=== PATIENT | female | born 1990 | race African-American/Black ===

== ENCOUNTER 2020-09-04 07:19 | Day surgery (SDC) | payer OTHER ==
[2020-09-04] VITALS (9 sets, daily range): BP systolic 103–117; BP diastolic 58–78
[~2020-09-04] VITALS: Ht 162.6 cm; Wt 69.4 kg
--- NOTE | 2020-09-04 06:53 | Anethesia Preoperative Eval ---
Anesthesia Pre-op PMH/ROS General Date of Evaluation: Sep 04, 2020 Anesthesiologist: Brian ASA Score: ASA 1 Mallampati Score Class I : Soft palate, uvula, fauces, pillars visible Class II: Soft palate, uvula, fauces visible Class III: Soft palate, base of uvula visible Class IV: Only hard plate visible Mallampati Classification: Class I Surgeon: Dusty Diagnosis: 5th digit hammertoes bilateral Surgical Procedure: bilateral 5th digit hammertoe correction Anesthesia History: none Family History: no anesthesia problems Allergies: Coded Allergies: Cultivated Oat Pollen (Verified Allergy, Intermediate, watery eyes; s tuhy, 09/02/20) SULFA (SULFONAMIDE ANTIBIOTICS) (Verified Allergy, Intermediate, unknown, 09/02/20) "was told by mother" Medications: see eMAR Patient NPO?: Yes NPO Date: Sep 04, 2020 NPO Time: 00:00 Past Medical History Cardiovascular: Denies: HTN, CAD, NV, valve dz, arrhythmia, other Pulmonary: Denies: asthma, COPD, [place], other Gastrointestinal/Genitourinary: Denies: GERD, CRI, ESRD, other Neurologic/Psychiatric: Denies: dementia, CVA, depression/anxiety, TIA, other Endocrine: Denies: DM, hypothyroidism, steroids, other HEENT: Denies: cataract (L), cataract (R), glaucoma, SENECA (L), SENECA (R), other Hematology/Immune: Denies: anemia, DVT, bleeding disorder, other Musculoskeletal/Integumentary: Denies: OA, RA, DJD, DDD, edema, other PSxH Narrative: excision thyroglossal duct Anesthesia Pre-op Phys. Exam Physician Exam see chart Constitutional: NAD Cardiovascular: RRR Respiratory: CTA Airway Exam Mallampati Score: Class I MO: full ROM: full Teeth: intact Anesthesia Pre-op A/P Labs see chart Risk Assessment & Plan Assessment: ASA I Plan: MAC Status Change Before Surgery: No Pre-Antibiotics Drug: Ancef 1g Given Within 1 Hr of Incision: Yes Marita Torres MD Sep 04, 2020 06:53
[2020-09-04] MEDS ORDERED: DiphenhydrAMINE 50mg/ml Inj IVP PRN (08:00)
[2020-09-04] MEDS ORDERED: fentaNYL 100 mcg/2 mL IV PRN (08:00)
[2020-09-04] MEDS ORDERED: Ketorolac 30mg Inj IV PRN (08:00)
[2020-09-04] MEDS ORDERED: LR 1000ml 1,000 ML IVLG SCH (08:00)
[2020-09-04] MEDS ORDERED: Metoclopramide 10mg/2ml Inj IVP PRN (08:00)
[2020-09-04] MEDS ORDERED: Midazolam 2mg/2ml Inj IVP PRN (08:00)
[2020-09-04] MEDS ORDERED: Hydromorphone 0.5mg/0.5ml inj IVP PRN (08:00)
[2020-09-04] MEDS ORDERED: Labetalol 5mg/ml 20ml vial IV PRN (08:00)
[2020-09-04] MEDS ORDERED: LORazepam Inj 2mg/ml 1ml IV PRN (08:00)
[2020-09-04] MEDS ORDERED: Nail Polish Remover TOPIC ONE (08:42)
[2020-09-04] MEDS ORDERED: Betadine 10% Oint 30gm TOPIC ONE (08:42)
[2020-09-04] MEDS ORDERED: Bacitracin 50000 Units Vial ONE (08:43)
[2020-09-04] MEDS ORDERED: Bupivacaine 0.25% Inj 30ml INJ ONE (08:43)
[2020-09-04] MEDS ORDERED: Lidocaine 1% Plain 30 ml INJ ONE (08:43)
[2020-09-04] MEDS ORDERED: ceFAZolin sod 1 GM in NS 55 ML IVPB ONE (09:00)
[2020-09-04] MEDS ORDERED: LR 1000ml ONE (09:00)
[2020-09-04] MEDS ORDERED: Sterile Water Irrig 1000ml IRRIG ONE (09:00)
--- NOTE | 2020-09-04 09:11 | Pre-Procedure Note/Attestation ---
Pre-Procedure Note/Attestation Complete Prior to Procedure Planned Procedure: bilateral Procedure Narrative: correction of hammer toe bilateral 5th with arthroplasty and tendon release with possible k-wire Indications for Procedure Pre-Operative Diagnosis: painful hammer toe bilateral 5th Attestation I attest that I discussed the nature of the procedure; its benefits; risks and complications; and alternatives (and the risks and benefits of such alternatives), prior to the procedure, with the patient (or the patient's legal customer account representative). I attest that, if there was a reasonable possibility of needing a blood transfusion, the patient (or the patient's legal customer account representative) was given the [facility] standardized written summary, pursuant to the [place] Blood Safety Act ([place] Health and Safety Code # 1645, as amended). I attest that I re-evaluated the patient just prior to the surgery and that there has been no change in the patient's H&P, except as documented below: Joon Montano DPM Sep 04, 2020 09:11
[2020-09-04] MEDS ORDERED: fentaNYL 100 mcg/2 mL IV ONE (09:16)
[2020-09-04] MEDS ORDERED: Lidocaine 1% MPF 10mg/ml 5ml ONE (09:16)
[2020-09-04] MEDS ORDERED: Midazolam 2mg/2ml Inj ONE (09:16)
[2020-09-04] MEDS ORDERED: DiphenhydrAMINE 50mg/ml Inj ONE (09:21)
[2020-09-04] MEDS ORDERED: Ketorolac 30mg Inj ONE (09:36)
[2020-09-04] MEDS ORDERED: NS Irrig 1000ml IRRIG ONE (09:46)
--- NOTE | 2020-09-04 10:33 | Brief Operative Note ---
Immediate Post Operative Note Operative Note Pre-op Diagnosis: painful hammer toe bilateral 5th Procedure: correction of hammer toe 5th with arthroplasty bilateral Post-op Diagnosis: painful hammer toe bilateral 5th Post-op Diagnosis: same as pre-op Surgeon: joon montano Anesthesiologist: dr fall Anesthesia: MAC Specimen: yes Complications: none Condition: stable Fluids: 0 Estimated Blood Loss: none Drains: none Tourniquet time: 50 Implant(s) used?: No Joon Montano Sep 04, 2020 10:33
--- NOTE | 2020-09-04 10:37 | Immediate Post-Op Evaluation ---
Immediate Post-Op Evalulation Immediate Post-Op Evalulation Procedure: Correction bilateral 5th digit hammertoes Date of Evaluation: Sep 04, 2020 Time of Evaluation: 10:39 IV Fluids: 600 Blood Products: 0 Estimated Blood Loss: min Urinary Output: 0 Blood Pressure Systolic: 107 Blood Pressure Diastolic: 68 Pulse Rate: 58 Respiratory Rate: 16 O2 Sat by Pulse Oximetry: 100 Temperature (Fahrenheit): 97.5 Pain Score (1-10): 0 Nausea: No Vomiting: No Complications 0 Patient Status: awake, reacts, patent, none Hydration Status: adequate Drug: Ancef 1g Given Within 1 Hr of Incision: Yes Marita Torres MD Sep 04, 2020 10:37
--- NOTE | 2020-09-04 10:37 | 48 Hour Post Anesthesia Eval ---
Post Anesthesia Evaluation Procedure: Correction bilateral 5th digit hammertoes Date of Evaluation: Sep 04, 2020 Airway: patent Nausea: No Vomiting: No Pain Intensity: 0 Hydration Status: adequate Cardiopulmonary Status: at baseline Mental Status/LOC: patient returned to baseline Post-Anesthesia Complications: 0 Follow-up care needed: ready to discharge Marita Torres MD Sep 04, 2020 10:37
--- NOTE | 2020-09-04 17:00 | Diagnostic Imaging Report ---
Indication: Right foot pain Technique: 3 views . foot Comparison: none Findings: No acute fracture. No dislocation. Joint spaces are preserved. There is mild hallux valgus Impression: No acute process
--- NOTE | 2020-09-04 17:00 | Diagnostic Imaging Report ---
Indication: Foot pain Technique: 3 views left foot Comparison: none Findings: No acute fracture. No dislocation. The joint spaces are preserved. There is hammertoe deformity of the second through fifth digits Impression: No acute process
--- NOTE | 2020-09-04 17:13 | Diagnostic Imaging Report ---
Indication: Pain, postoperative Technique: 3 views left foot Comparison: 3 hours earlier Findings: Interim osteotomy of the fifth proximal phalangeal head. No other significant interim change Impression: Postoperative changes, no unusual features
--- NOTE | 2020-09-04 17:16 | Diagnostic Imaging Report ---
Indication: Pain, postoperative Technique: 3 views right foot Comparison: 3 hours earlier Findings: Interim fifth proximal phalangeal head osteotomy. No other interim change Impression: Postoperative changes, as described. No unusual features
--- NOTE | 2020-09-04 18:30 | Operative Note - Dictated ---
DATE OF OPERATION: 09/04/2020 SURGEON: Joon Montano DPM ANESTHESIOLOGIST: Marita Torres MD PREOPERATIVE DIAGNOSIS: Hammertoe bilateral fifth. POSTOPERATIVE DIAGNOSIS: Hammertoe bilateral fifth. OPERATION: Correction of hammertoe with arthroplasty, bilateral fifth. HEMOSTASIS: Pneumatic ankle tourniquet at 250 mmHg. ESTIMATED BLOOD LOSS: Minimal, less than 2 mL. MATERIAL USED: 3-0 Vicryl, 4-0 Vicryl, 4-0 nylon. COMPLICATION: None. PATHOLOGY: Bone resected from the head of the proximal phalanx was sent for pathology and further study. INJECTABLES: Approximately 80 mL of 0.25% Marcaine and 1% lidocaine in the ratio of 1 to 1 was injected in terms of Barr fashion at the MPJ of the fifth bilaterally. Postoperatively, 2 mL of dexamethasone with 4 mL of Marcaine plain was given in postoperative area for pain management and reduction of inflammation. DRESSING: The incision was covered with Betadine ointment, Xeroform, 4 x 4. Postoperative shoe and crutches were given to the patient. DESCRIPTION OF THE PROCEDURE IN DETAIL: The patient was brought in the operating room, was placed on the operating table in supine position. A time-out was performed to verify the patient's name, procedure site, and the surgery and consent was done. Monitored anesthesia care was then administered to the patient and the ankle tourniquet was placed about the right and the left ankle of the patient. After 1 g of Ancef was given to the patient, approximately 80 mL of 1:1 mixture of 0.25% plain Marcaine and 1% lidocaine was given in the surgical area. The foot was scrubbed, prepared, and draped in the usual aseptic manner. An Esmarch bandage was utilized to exsanguinate the extremity starting with the left foot. The tourniquet was inflated to 250 mmHg. Attention was directed to the left foot at the fifth metatarsophalangeal joint and the fifth PIPJ. An elliptical incision was made vertically over the IPK and encompassing PIPJ joint. The incision was extended down to the PIPJ. The wedge of skin was then removed that included an encompassed IPK. At this time, the incision was deepened through subcutaneous tissue and capsule. Transverse capsulotomy was performed at the head of the proximal phalanx and all attachments medial, lateral, and plantarly were dissected. At this time, it was noticed that the head of the proximal phalanx was appropriately large. At this time, using a sagittal saw approximately 3 mm of the head of the proximal phalanx was osteotomized and excised and passed from the field. At this time, it was noticed that the contraction has dramatically reduced and no necessary further reduction in contraction such as releasing the flexor was needed. At this time, the soft tissue was lavaged with normal saline, bacitracin. The tendon and the extensor were reapproximated. The deeper tissues were closed using 4-0 Vicryl. Subsequently, the skin was closed using 4-0 nylon. At this time, an injection of 3 mL that included 1 mL of 4 mg dexamethasone and 2 mL of Marcaine was given into the postoperative area for pain management. Dressing was consisted of Xeroform, 4 x 4, Karla, and Coban applied. After the dressing was applied, tourniquet was deflated and immediate hyperemia was noted to digits 1 through 5. At this time, the ankle tourniquet was deflated and the right foot ankle tourniquet was inflated after using an Esmarch bandage. An exact same procedure was done for on the fifth on the right. After the closure and the dressing on the right, second tourniquet on the right was also deflated and immediate hyperemia was noted digits 1 through 5 on the right. The patient was then transferred from operating room to the postoperative room with all vital signs stable. The patient will be discharged upon recommendation of Anesthesia. There were no complications to the surgery. The patient was given postoperative pain management and antibiotic before the start surgery and had them at home. She was given instruction and followup appointment with Dr. Montano. Joon Montano D.P.M. DR: MURALI JOB#: [id number] CC:
--- NOTE | 2020-09-04 20:00 | Pre-op HX & Phy Repo 2 SIG ---
DATE OF ADMISSION: 09/04/2020 HISTORY OF PRESENT ILLNESS: This is a 29-year-old female with painful bilateral foot deformity secondary to fifth toe hammertoe with painful IPK at the PIP joint, bilateral foot. The patient states that the pain has been getting progressively worse over the past few years. The pain is mostly secondary to hammertoe creating a pressure point on the PIPJ and contractions MPJ. The patient has tried numerous conservative measures including padding, offloading, shoe gear changes, debridement, but continues to experience daily pain. She has had no recent illnesses. No nausea, vomiting, chills, or shortness of breath. The patient is scheduled to have surgery today 09/04/2020 at [facility]. PAST MEDICAL HISTORY: There is no pertinent findings. MEDICATIONS: None. ALLERGIES: Sulfa. SOCIAL HISTORY: Denies illicit drugs or smoking. FAMILY HISTORY: No pertinent finding. PHYSICAL EXAMINATION: VITAL SIGNS: Temperature is 97.7, pulse is 70, respiratory rate 14, blood pressure is 120/82, O2 saturation is 99% on room temperature. DERMATOLOGICAL: There are no open lesion. Hyperkeratotic lesion noted at the PIPJ of the fifth digit bilaterally. VASCULAR: Dorsalis pedis and posterior are palpable. No edema. MUSCULOSKELETAL: Full muscle strength. ASSESSMENT AND PLAN: This is a 29-year-old female with bilateral foot deformity second to hammertoe on the fifth. After a trial of conservative measures, she has decided to have surgery as a next step with pain management. The risks, benefits, and alternatives were discussed with the patient in detail who understands and wants to proceed with surgical intervention. All patient questions have been answered. The patient is scheduled to have surgery today at [facility]. Joon Montano D.P.M. DR: Diana JOB#: [id number] CC:
== END 2020-09-04 12:15 | disposition home or self-care (01) ==
LOC: SUR 07:19
DX: M20.42 Other hammer toe(s) (acquired), left foot (principal); M20.41 Other hammer toe(s) (acquired), right foot; Z88.2 Allergy status to sulfonamides; L85.9 Epidermal thickening, unspecified
CPT/HCPCS: 28285; 73630; 81025; 94003; 97161; J0690; J1100; J1200; J1885; J2001; J2250; J2405; J2704; J3010; J3490; J7120; U0002; 94150